=== PATIENT | female | born 1980 | race Hispanic/Latino ===

== ENCOUNTER 2018-07-23 12:45 | Outpatient (RCR) | payer OTHER | END 2018-07-24 | LOC: PT 12:45 | PROVIDERS: ATTEND Internal Medicine | DX: M47.12 Other spondylosis with myelopathy, cervical region (principal) ==

== ENCOUNTER 2018-09-09 14:51 | Outpatient (RCR) | payer OTHER | END 2018-09-23 | LOC: PT 14:51 | PROVIDERS: ATTEND Internal Medicine | DX: M47.12 Other spondylosis with myelopathy, cervical region (principal); M47.16 Other spondylosis with myelopathy, lumbar region ==

== ENCOUNTER → 2018-09-12 | Outpatient (CLI) | payer OTHER ==
--- NOTE | 2018-09-12 09:10 | Diagnostic Imaging Report ---
PROCEDURE:L-SPINE COMPLETE COMPARISON:None. INDICATIONS:BACK PAIN FINDINGS: There are 5 sjp-[id number]-idxlgew lumbar vertebral bodies. No acute, displaced fracture or subluxation. Pars interarticularis are intact as seen on the oblique radiographs. Intervertebral disc spaces and facet joints are well maintained. Right-sided tubal ligation clip. Pelvic phleboliths. Sacroiliac joints are intact. CONCLUSION: No acute osseous abnormality. Dictated by: Germán Piedra M.D. on 09/12/2018 at 9:21 Electronically approved by: Germán Piedra M.D. on 09/12/2018 at 9:21
--- NOTE | 2018-09-12 09:11 | Diagnostic Imaging Report ---
PROCEDURE:SACRUM X-RAY INDICATION:Low back pain COMPARISON:None. FINDINGS: No acute, displaced fracture. Sacroiliac joints are intact and well maintained. Sacral foramina are intact superiorly. The inferior sacrum and coccyx are obscured by bowel gas on the frontal radiograph. Soft tissues are unremarkable. CONCLUSION: No acute osseous abnormality. Dictated by: Germán Piedra M.D. on 09/12/2018 at 9:22 Electronically approved by: Germán Piedra M.D. on 09/12/2018 at 9:22
--- NOTE | 2018-09-12 10:12 | Diagnostic Imaging Report ---
PROCEDURE:ABDOMINAL ULTRASOUND COMPARISON:None. INDICATIONS:HEMATURIA FINDINGS: Liver: 17.4 cm in length and the right midclavicular line. Increased hepatic parenchymal echogenicity. 1.4 x 0.8 x 1.4 cm probably anechoic lesion deep within the right hepatic lobe. Questionable echogenic septation. Main portal vein: 1.2 cm in caliber. Patent. Hepatopedal flow. Gallbladder: No shadowing calculus, wall thickening, or pericholecystic fluid. Common Bile Duct: 0.3 cm in caliber. No echogenic filling defect. Sonographic Nava's sign: Reported as negative. Right kidney: 12.8 cm in length. No solid or cystic mass, echogenic calculi, or hydronephrosis. Normal parenchymal echogenicity. Left kidney: 12 cm in length. No solid or cystic mass, echogenic calculi, or hydronephrosis. Normal parenchymal echogenicity. Spleen: 8.1 cm in length. Uniform echotexture. In the region of the splenic hilum there is a round isoechoic area measuring 4.5 x 4 x 3.6 cm. Pancreas: The visualized portions of the pancreas are normal. Inferior vena cava: Patent Aorta: Non-aneurysmal Ascites: None. CONCLUSION: No renal calculi or hydronephrosis in this patient with reported history of hematuria. Right hepatic cystic lesion appears minimally complex with an echogenic septation. CT scan or MRI of the abdomen with and without contrast (liver mass protocol) is suggested for further characterization. Round, isoechoic structure adjacent to the spleen may represent a splenule within the hilum or splenic hamartoma. This lesion may also be further characterized by above recommended multi-phase CT or MRI of the abdomen. Dictated by: Germán Piedra M.D. on 09/12/2018 at 10:23 Electronically approved by: Germán Piedra M.D. on 09/12/2018 at 10:23
== END ==
LOC: US 07:29
PROVIDERS: ATTEND Internal Medicine
DX: M47.16 Other spondylosis with myelopathy, lumbar region (principal); R31.9 Hematuria, unspecified
CPT/HCPCS: 72110; 72220; 76700

== ENCOUNTER 2018-11-24 16:06 | Emergency (ER) | payer OTHER ==
[~2018-11-24] VITALS: Ht 165.1 cm; Wt 95.3 kg
--- OUTSIDE RECORDS SUMMARY | 2018-11-24 16:10 | XMS REPORT ---
Author Author Evelyn Spaulding [facility] eClinicalWorks Address Unknown Phone Unavailable Care Team Providers Care Web Applications Architect Name Role Phone Evelyn Spaulding Unavailable Allergies, Adverse Reactions, Alerts Substance Reaction Event Type sulfa Info Not Available Drug Allergy Reglan Info Not Available Drug Allergy Cipro Info Not Available Drug Allergy Encounters Encounter Location Date new patient here for left arm and shoulder pain [facility] May 22, 2016 Problems Problem Type Condition ICD-9 Code Onset Dates Condition Status Assessment Left shoulder pain M25.512 Active Problem Liver lesion K76.9 Active Problem Constipation K59.00 Active Problem Left ankle pain M25.572 Active Problem Anxiety F41.9 Active Problem Left shoulder pain M25.512 Active Problem GERD (gastroesophageal reflux disease) K21.9 Active Problem Diverticulitis K57.92 Active Problem Thyroid cancer, medullary carcinoma C73 Active Problem Hypothyroidism E03.9 Active Assessment Constipation K59.00 Active Assessment Liver lesion K76.9 Active Assessment Hypothyroidism E03.9 Active Assessment Thyroid cancer, medullary carcinoma C73 Active Assessment Diverticulitis K57.92 Active Assessment Anxiety F41.9 Active Assessment GERD (gastroesophageal reflux disease) K21.9 Active Assessment Left ankle pain M25.572 Active Medications Medication Code System Code Instructions Start Date End Date Status Dosage Omeprazole MEDISPAN [address]-22 20 mg Orally Once a day Active 1 capsule [facility] [address]-29 15 MG Orally Once a day May 22, 2016 Jun 21, 2016 Active 1 tablet Flexeril Unknown 0 10 mg as needed (prn) Active Unknown [facility] [address]-46 137 MCG Orally Once a day Active 1 tablet Paroxetine HCl [facility] [address]-00 10 mg Orally Once a day May 22, 2016 Active 1 tablet in the morning Social History Social History Element Qualifiers Date Reported Smoke Exposure: . Second Hand Smoke Exposure: No May 22, 2016 Sexual History: . Are you currently sexually active? Yes May 22, 2016 Tobacco Use: . Are you a: never smoker, Do you use alternate forms of tobacco? No May 22, 2016 Use of recreational / street drugs? . Answer: No May 22, 2016 Alcohol Screening: . Points: 0 May 22, 2016 Marital Status: . May 22, 2016 Caffeine intake? . Status: No May 22, 2016 Do you exercise? . Answer: No May 22, 2016 Do you drink alcohol? . Status: No May 22, 2016 Vital Signs Date/Time: May 22, 2016 Weight 188.1 lbs Height 67 in Temperature 98.1 F Cardiac Monitoring Heart Rate 79 /min Blood Pressure Diastolic 78 mm Hg Blood Pressure Systolic 112 mm Hg Summary Purpose eClinicalWorks Submission
--- OUTSIDE RECORDS SUMMARY | 2018-11-24 16:10 | XMS REPORT | Continuity of Care Document ---
Author Author [facility] Interface Address Unknown Phone Unavailable Problems Problem Status Onset Date Classification Date Reported Comments Source Left shoulder pain Active Problem 05/27/2016 [facility] Liver lesion Active Problem 05/27/2016 [facility] Constipation Active Problem 05/27/2016 [facility] Left ankle pain Active Problem 05/27/2016 [facility] Anxiety Active Problem 05/27/2016 [facility] GERD Active Problem 05/27/2016 [facility] Diverticulitis Active Problem 05/27/2016 [facility] Thyroid cancer, medullary carcinoma Active Problem 05/27/2016 [facility] Hypothyroidism Active Problem 05/27/2016 [facility] S/P hysterectomy Active Problem 05/27/2016 [facility] Vaginal discharge Active Diagnosis 05/27/2016 [facility] Concern about STD in female without diagnosis Active Diagnosis 05/27/2016 [facility] Medications Medication Details Route Status Patient Instructions Ordering Provider Order Date Source Diflucan 1 tablet Orally Active 150 MG Orally Once a day Jasson 05/26/2016 [facility] Meloxicam 1 tablet Orally Active 15 MG Orally Once a day [facility] 05/22/2016 [facility] Paroxetine HCl 1 tablet in the morning Orally Active 10 mg Orally Once a day Jasson 05/22/2016 [facility] Omeprazole 1 capsule Orally Active 20 mg Orally Once a day [facility] Flexeril Unknown NA Active 10 mg as needed (prn) [facility] Synthroid 1 tablet Orally Active 137 MCG Orally Once a day [facility] Allergies, Adverse Reactions, Alerts Substance Category Reaction Severity Reaction type Status Date Reported Comments Source Metoclopramide Allergy to Substance Active 05/07/2015 [facility] sulfa Adverse Reaction Info Not Available Adverse Reaction Active 05/26/2016 [facility] Reglan Adverse Reaction Info Not Available Adverse Reaction Active 05/26/2016 [facility] Cipro Adverse Reaction Info Not Available Adverse Reaction Active 05/26/2016 [facility] Immunizations Immunization Date Given Site Status Last Updated Comments Source Results Order Name Results Value Reference Range Date Interpretation Comments Source Vital Signs Vital Sign Value Date Comments Source Weight 189.6 05/26/2016 [facility] Height 67 05/26/2016 [facility] Temperature Oral (F) 98.2 F 05/26/2016 [facility] Heart Rate 76 05/26/2016 [facility] Diastolic (mm Hg) 75 05/26/2016 [facility] Systolic (mm Hg) 113 05/26/2016 [facility] Weight 188.1 05/22/2016 [facility] Height 67 05/22/2016 [facility] Temperature Oral (F) 98.1 F 05/22/2016 [facility] Heart Rate 79 05/22/2016 [facility] Diastolic (mm Hg) 78 05/22/2016 [facility] Systolic (mm Hg) 112 05/22/2016 [facility] Encounters Location Location Details Encounter Type Encounter Number Reason For Visit Attending Provider ADM Date DC Date Status Source [facility] new patient here for left arm and shoulder pain [id number] 05/22/2016 05/22/2016 [facility] new patient here for left arm and shoulder pain [id number] 05/22/2016 05/22/2016 [facility] Patient here for a wwe [id number] 05/26/2016 05/26/2016 [facility] Discharged Recurring [id number] NENO NAIK MD 07/22/2018 07/24/2018 [facility] Discharged Recurring [id number] NENO NAIK MD 09/09/2018 09/23/2018 [facility] Registered [facility] [id number] NENO NAIK MD 09/12/2018 [facility] Procedures Procedure Code Date Perfomer Comments Source US abdomen complete [id number] 09/12/2018 NAIK [facility]
--- OUTSIDE RECORDS SUMMARY | 2018-11-24 16:10 | XMS REPORT | Clinical Summary ---
Author Author [facility] Address Unknown Phone Unavailable Care Team Providers Care Saturation Equipment Operator Name Role Phone Asked, No Pcp PCP Unavailable Allergies Comments Active Allergy Reactions Severity Noted Date Metoclopramide Hcl Shortness Of High 03/13/2016 Breath Sulfa (Sulfonamide Itching, Rash Low 03/13/2016 Antibiotics) Medications End Date Status Medication Sig Dispensed Refills Start Date Active acetaminophen-codeine Take 1 tablet 0 (TYLENOL #3) 300-30 mg by mouth per tablet every 4 (four) hours as needed for moderate pain. Active ALPRAZolam (XANAX) 1 MG Take 1 mg by 0 tablet mouth nightly as needed for anxiety or sleep. Active cyclobenzaprine Take 10 mg by 0 (FLEXERIL) 10 MG tablet mouth 3 (three) times a day as needed for muscle spasms. Active ibuprofen (ADVIL,MOTRIN) Take 800 mg 0 800 MG tablet by mouth every 8 (eight) hours as needed for mild pain or headaches. Active levothyroxine (SYNTHROID, Take 137 mcg 0 LEVOTHROID) 137 MCG by mouth tablet every morning. Active traMADol (ULTRAM) 50 mg Take 50 mg by 0 tablet mouth every 6 (six) hours as needed for moderate pain. Active OMEGA-3 FATTY ACIDS/FISH Take 1 0 OIL (OMEGA 3 FISH OIL capsule by ORAL) mouth daily. Active calcium carbonate-vitamin Take 1 tablet 0 D3 500 mg-200 unit per by mouth tablet daily. Active VITAMIN B COMPLEX (B Take 1 tablet 0 COMPLEX ORAL) by mouth daily. Active magnesium oxide (MAG-OX) Take 400 mg 0 400 mg tablet by mouth daily. Active Problems Not on file Family History Medical History Relation Name Comments Osteoporosis Father Scoliosis Father Osteoporosis Mother Rheumatologic disease Mother Relation Name Status Comments Father Mother Social History Date Tobacco Use Types Packs/Day Years Used Never Smoker Alcohol Use Drinks/Week oz/Week Comments No Sex Assigned at Date Recorded Not on file Industry Job Start Date Occupation Not on file Not on file Not on file Travel End Travel History Travel Start No recent travel history available. Last Filed Vital Signs Not on file Plan of Treatment Health Maintenance Due Date Last Done Comments CERVICAL CANCER SCREENING 2000 INFLUENZA VACCINE 04/24/2018 Results Not on fileafter 11/23/2017 Insurance Payer Benefit Subscriber ID Type Phone Address Plan / Group [facility] xxxxxxxxx HMO/PPO THCARE CHOICE/CHO ICE + Advance Directives Patient has advance care planning documents on file. For more information, vicenta dorantes contact: Anil Marin [address] [place] [address]
--- OUTSIDE RECORDS SUMMARY | 2018-11-24 16:10 | XMS REPORT ---
Author [facility] Address Unknown Phone Unavailable Care Team Providers Care Package Line Relief Operator Name Role Phone Alyssia NAIK Unavailable Unavailable Problems This patient has no known problems. Allergies, Adverse Reactions, Alerts This patient has no known allergies or adverse reactions. Medications This patient has no known medications. Results Test Description Test Time Test Comments Text Results Atomic Results Result Comments US ABDOMEN COMPLETE 2018-09-12 10:23:00 [place] [address] Patient Name: ELIDA SABA V MR #: [id number] : 1980 Age/Sex: 38/F Req #: [id number] Adm Physician: Ordered by: NENO NAIK MD Report #: [id number] Location: US Room/Bed: Procedure: [id number] US/US ABDOMEN COMPLETE Exam Date: Exam Time: REPORT STATUS: Signed PROCEDURE: ABDOMINAL ULTRASOUND COMPARISON: None. INDICATIONS: HEMATURIA FINDINGS: Liver: 17.4 cm in length and the right midclavicular line. Increased hepatic parenchymal echogenicity. 1.4 x 0.8 x 1.4 cm probably anechoic lesion deep within the right hepatic lobe. Questionable echogenic septation. Main portal vein: 1.2 cm in caliber. Patent. Hepatopedal flow. Gallbladder: No shadowing calculus, wall thickening, or pericholecystic fluid. Common Bile Duct: 0.3 cm in caliber. No echogenic filling defect. Sonographic Nava's sign: Reported as negative. Right kidney: 12.8 cm in length. No solid or cystic mass, echogenic calculi, or hydronephrosis. Normal parenchymal echogenicity. Left kidney: 12 cm in length. No solid or cystic mass, echogenic calculi, or hydronephrosis. Normal parenchymal echogenicity. Spleen: 8.1 cm in length. Uniform echotexture. In the region of the splenic hilum there is a round isoechoic area measuring 4.5 x 4 x 3.6 cm. Pancreas: The visualized portions of the pancreas are normal. Inferior vena cava: Patent Aorta: Non-aneurysmal Ascites: None. CONCLUSION: No renal calculi or hydronephrosis in this patient with reported history of hematuria. Right hepatic cystic lesion appears minimally complex with an echogenic septation. CT scan or MRI of the abdomen with and without contrast (liver mass protocol) is suggested for further characterization. Round, isoechoic structure adjacent to the spleen may represent a splenule within the hilum or splenic hamartoma. This lesion may also be further characterized by above recommended multi-phase CT or MRI of the abdomen. Dictated by: Cesar Wu M.D. on 09/12/2018 at 10:23 Electronically approved by: Cesar Wu M.D. on 09/12/2018 at 10:23 Dictated By: CESAR WU MD 1023 Transcribed By: NATALIE on 09/12/18 1023 COPY TO: NENO NAIK MD SACRUM X-RAY 2018-09-12 09:22:00 [place] [address] Patient Name: ELIDA SABA V MR #: [id number] : 1980 Age/Sex: 38/F Req #: [id number] Adm Physician: Ordered by: NENO NAIK MD Report #: [id number] Location: US Room/Bed: Procedure: DX/SACRUM X-RAY Exam Date: 09/12/18 Exam Time: 0820 REPORT STATUS: Signed PROCEDURE: SACRUM X-RAY INDICATION: Low back pain COMPARISON: None. FINDINGS: No acute, displaced fracture. Sacroiliac joints are intact and well maintained. Sacral foramina are intact superiorly. The inferior sacrum and coccyx are obscured by bowel gas on the frontal radiograph. Soft tissues are unremarkable. CONCLUSION: No acute osseous abnormality. Dictated by: Cesar Wu M.D. on 09/12/2018 at 9:22 Electronically approved by: Cesar Wu M.D. on 09/12/2018 at 9:22 Dictated By: CESAR WU MD 1 Transcribed By: NATALIE on 09/12/18921 COPY TO: NENO NAIK MD SP LUMBAR, COMPLETE MIN 4VW 2018-09-12 09:21:00 [place] [address] Patient Name: ELIDA SABA V MR #: [id number] : 1980 Age/Sex: 38/F Req #: [id number] Adm Physician: Ordered by: NENO NAIK MD Report #: [id number] Location: Room/Bed: Procedure: DX/SP LUMBAR, COMPLETE MIN 4VW Exam Date: 09/12/18 Exam Time: 819 REPORT STATUS: Signed PROCEDURE: L-SPINE COMPLETE COMPARISON: None. INDICATIONS: BACK PAIN FINDINGS: There are 5 nvx-dfu-okjpxmm lumbar vertebral bodies. No acute, displaced fracture or subluxation. Pars interarticularis are intact as seen on the oblique radiographs. Intervertebral disc spaces and facet joints are well maintained. Right-sided tubal ligation clip. Pelvic phleboliths. Sacroiliac joints are intact. CONCLUSION: No acute osseous abnormality. Dictated by: Cesar Wu M.D. on 09/12/2018 at 9:21 Electronically approved by: Cesar Wu M.D. on 09/12/2018 at 9:21 Dictated By: CESAR WU MD 0 Transcribed By: NATALIE on 09/12/18920 COPY TO: NENO NAIK MD
--- OUTSIDE RECORDS SUMMARY | 2018-11-24 16:10 | XMS REPORT ---
Author Author Evelyn Spaulding [facility] eClinicalWorks Address Unknown Phone Unavailable Care Team Providers Care Biophysics Professor Name Role Phone Jasson, Evelyn Unavailable Allergies, Adverse Reactions, Alerts Substance Reaction Event Type sulfa Info Not Available Drug Allergy Reglan Info Not Available Drug Allergy Cipro Info Not Available Drug Allergy Encounters Encounter Location Date new patient here for left arm and shoulder pain [facility] May 22, 2016 Patient here for a wwe [facility] May 26, 2016 Problems Problem Type Condition ICD-9 Code Onset Dates Condition Status Problem Constipation K59.00 Active Problem Diverticulitis K57.92 Active Problem Liver lesion K76.9 Active Problem Left shoulder pain M25.512 Active Problem Left ankle pain M25.572 Active Problem S/P hysterectomy Z90.710 Active Problem Hypothyroidism E03.9 Active Problem GERD (gastroesophageal reflux disease) K21.9 Active Problem Anxiety F41.9 Active Problem Thyroid cancer, medullary carcinoma C73 Active Assessment S/P hysterectomy Z90.710 Active Assessment Vaginal discharge N89.8 Active Assessment Concern about STD in female without diagnosis Z71.1 Active Assessment Well woman exam Z01.419 Active Medications Medication Code System Code Instructions Start Date End Date Status Dosage Synthroid MEDISPAN [address]-47 137 MCG Orally Once a day Active 1 [facility] [address]-67 150 MG Orally Once a day May 26, 2016 May 28, 2016 Active 1 tablet [facility] [address]-36 15 MG Orally Once a day May 22, 2016 Jun 21, 2016 Active 1 tablet Paroxetine HCl [facility] [address]-49 10 mg Orally Once a day May 22, 2016 Active 1 tablet in the morning Flexeril Unknown 0 10 mg as needed (prn) Active Unknown [facility]eprazole [facility] [address]-36 20 mg Orally Once a day Active 1 capsule Social History Social History Element Qualifiers Date Reported Smoke Exposure: . Second Hand Smoke Exposure: No May 26, 2016 Sexual History: . Are you currently sexually active? Yes May 26, 2016 Tobacco Use: . Are you a: never smoker, Do you use alternate forms of tobacco? No May 26, 2016 Use of recreational / street drugs? . Answer: No May 26, 2016 Alcohol Screening: . Points: 0 May 26, 2016 Marital Status: . May 26, 2016 Caffeine intake? . Status: No May 26, 2016 Do you exercise? . Answer: No May 26, 2016 Do you drink alcohol? . Status: No May 26, 2016 Family history Qualifier Description Comment Date Reported Maternal Grandmother Comment not available May 26, 2016 Paternal Grandmother Comment not available May 26, 2016 Siblings Comment not available May 26, 2016 Maternal Grandfather Comment not available May 26, 2016 Children Comment not available May 26, 2016 Father Comment not available May 26, 2016 Paternal Grandfather Comment not available May 26, 2016 Mother alive rheumatoid arthritis May 26, 2016 Other: Comment not available May 26, 2016 Vital Signs Date/Time: May 26, 2016 Weight 189.6 lbs Height 67 in Temperature 98.2 F Cardiac Monitoring Heart Rate 76 /min Blood Pressure Diastolic 75 mm Hg Blood Pressure Systolic 113 mm Hg Summary Purpose eClinicalWorks Submission
[2018-11-24] MEDS ORDERED: ACETAMINOPHEN/CODEINE ELIX 120-12 MG/5 ML UDC PO ONE (16:30)
--- NOTE | 2018-11-24 17:24 | Diagnostic Imaging Report ---
Exam: Soft tissue neck History: Throat pain Comparison: None. Findings: No fracture or malalignment. No abnormal soft tissue calcification or soft tissue defect. Impression: No acute osseous abnormality No radiopaque foreign body Signed by: Dr. Roldan Alba M.D. on 11/24/2018 5:20 PM
[2018-11-24] MEDS ORDERED: DEXAMETHASONE SOD PHOS 10 MG/1 ML VIAL IM ONE (17:45)
[2018-11-24 18:01] VITALS: BP 113/80
== END 2018-11-24 18:00 | disposition home or self-care (01) ==
LOC: ER 16:06
DX: R09.89 Other specified symptoms and signs involving the circulatory and respiratory systems (principal); R07.0 Pain in throat; R10.32 Left lower quadrant pain; K21.9 Gastro-esophageal reflux disease without esophagitis; F41.9 Anxiety disorder, unspecified; F32.9 Major depressive disorder, single episode, unspecified; Z85.850 Personal history of malignant neoplasm of thyroid
CPT/HCPCS: 70360; 93005; 99283; J1100

== ENCOUNTER 2019-07-17 11:00 | Outpatient (RCR) | payer OTHER | END 2019-07-24 | LOC: PT 11:00 | PROVIDERS: ATTEND Internal Medicine | DX: M47.16 Other spondylosis with myelopathy, lumbar region (principal); M47.22 Other spondylosis with radiculopathy, cervical region; M62.81 Muscle weakness (generalized) ==

== ENCOUNTER 2019-08-11 12:44 | Outpatient (RCR) | payer OTHER | END 2019-08-23 | LOC: PT 12:44 | PROVIDERS: ATTEND Internal Medicine | DX: M47.16 Other spondylosis with myelopathy, lumbar region (principal); M62.81 Muscle weakness (generalized); M47.22 Other spondylosis with radiculopathy, cervical region ==

== ENCOUNTER → 2020-11-01 | Outpatient (CLI) | payer OTHER | LOC: RAD 10:03 | PROVIDERS: ATTEND Internal Medicine | DX: J45.40 Moderate persistent asthma, uncomplicated (principal) | CPT/HCPCS: 71046 ==

== ENCOUNTER → 2021-03-03 | Outpatient (CLI) | payer OTHER | LOC: RAD 10:08 | PROVIDERS: ATTEND Internal Medicine | DX: Z22.7 Latent tuberculosis (principal) | CPT/HCPCS: 71046 ==

== ENCOUNTER → 2024-07-29 | Outpatient (REF) | payer OTHER | LOC: RAD 09:26 | PROVIDERS: ATTEND Internal Medicine | DX: M25.462 Effusion, left knee (principal) ==